=== PATIENT | female | born 1960 | race African-American/Black ===

== ENCOUNTER 2017-08-06 08:05 | Emergency (ER) | payer OTHER ==
[~2017-08-06] VITALS: Ht 172.7 cm; Wt 118.0 kg
[2017-08-06 08:12] VITALS: BP 163/80; PULSE 88; RESP 24; TEMP 99.3; O2SAT 94
[2017-08-06] MEDS ORDERED: METO25TA3 PO (08:19)
[2017-08-06] MEDS ORDERED: VALS1TAB70 PO ×2 (08:19→09:19)
[2017-08-06 08:23] VITALS: RESP 22; O2SAT 97
--- NOTE | 2017-08-06 08:24 | PD ---
HPI Chief Complaint: Respiratory Symptoms Time Seen by Provider: 08:16 Travel History International Travel<30 days: No Contact w/Intl Traveler<30days: No Traveled to known affect area: No History of Present Illness HPI This is a 57-year-old female who has a history of COPD who presents to the emergency department with increasing shortness of breath, constant, moderate severity over the past 2 days associated with a fever to 101 and a nonproductive cough. She says she was up all night using her nebulizer but she continues to feel short of breath this morning. She also says she has had itchy eyes. She has been taking certrizine but it is not helping. She has been staying with a friend and they have a dog and she thinks this is triggering her wheezing. [facility] Past Medical History Narrative Medical Hypertension COPD Diabetes Asthma: Yes Cardiovascular Problems: Yes (HBP) COPD: Yes Diabetes: Yes (TYPE 2 ) Patient Takes Glucophage: No Diminished Hearing: No Hypertension: Yes Medical other: Yes Respiratory: Yes (COPD) Tetanus Vaccination: > 5 Years Influenza Vaccination: Yes ?: Not : 7 Para: 7 Past Surgical History Gynecologic Surgery: Yes Hysterectomy: Yes Social History Alcohol Use: No Tobacco Use: Yes (1 PACK PER WEEK) Substance Use: No Allergies-Medications (Allergen,Severity, Reaction): Coded Allergies: codeine (Verified Allergy, Intermediate, HIVES, 08/06/17) tomato (Verified Allergy, Intermediate, HIVES, 08/06/17) Reported Meds & Prescriptions Reported Meds & Active Scripts Active Reported Metoprolol Tartrate 25 Mg Tab 25 Mg PO BID Valsartan 320 Mg Tab 320 Mg PO DAILY Review of Systems Except as stated in HPI: all other systems reviewed are Neg Physical Exam Narrative GENERAL:Well appearing, no acute distress SKIN: Focused skin assessment warm and dry. HEAD: Atraumatic. Normocephalic. EYES: Pupils equal and round. No injection or drainage. ENT: Moist mucous membranes NECK: Trachea midline. CARDIOVASCULAR: Regular rate and rhythm. No murmur appreciated. RESPIRATORY: Diffuse wheezing bilaterally with no increased work of breathing GASTROINTESTINAL: Abdomen soft, non-tender, nondistended. MUSCULOSKELETAL: No obvious deformities. NEUROLOGICAL: Awake and alert. No obvious cranial nerve deficits. Moving all extremities. PSYCHIATRIC: Appropriate mood and affect; insight and judgment normal. Data Data Last Documented VS Vital Signs Date Time Temp Pulse Resp B/P (MAP) Pulse Ox O2 Delivery O2 Flow Rate FiO2 08/06/17 08:23 97 Room Air 08/06/17 08:23 22 08/06/17 08:12 82 08/06/17 08:12 99.3 163/80 (107) Orders Orders Complete Blood Count With Diff (08/06/17 08:22) Comprehensive Metabolic Panel (08/06/17 08:22) Chest, Single Ap (08/06/17:22) Ecg Monitoring (08/06/17 08:22) Iv Access Insert/Monitor (08/06/17:) Oximetry (08/06/17:22) Oxygen Administration (08/06/17:22) Methylprednisolone So Succ Inj (Solumedr (08/06/17 08:30) Albuterol Neb (Albuterol Neb) (08/06/17 08:30) Sodium Chloride 0.9% Flush (Ns Flush) (08/06/17 08:30) Lactic Acid (08/06/17 08:22) Labs Laboratory Tests Test 08/06/17 08:10 White Blood Count 7.3 TH/MM3 Red Blood Count 4.62 MIL/MM3 Hemoglobin 14.3 GM/DL Hematocrit 42.1 % Mean Corpuscular Volume 91.2 FL Mean Corpuscular Hemoglobin 31.0 PG Mean Corpuscular Hemoglobin Concent 34.0 % Red Cell Distribution Width 14.0 % Platelet Count 242 TH/MM3 Mean Platelet Volume 9.1 FL Neutrophils (%) (Auto) 35.7 % Lymphocytes (%) (Auto) 51.5 % Monocytes (%) (Auto) 5.8 % Eosinophils (%) (Auto) 6.6 % Basophils (%) (Auto) 0.4 % Neutrophils # (Auto) 2.6 TH/MM3 Lymphocytes # (Auto) 3.8 TH/MM3 Monocytes # (Auto) 0.4 TH/MM3 Eosinophils # (Auto) 0.5 TH/MM3 Basophils # (Auto) 0.0 TH/MM3 CBC Comment DIFF FINAL Differential Comment Blood Urea Nitrogen 16 MG/DL Creatinine 1.04 MG/DL Random Glucose 101 MG/DL Total Protein 7.5 GM/DL Albumin 3.6 GM/DL Calcium Level 8.5 MG/DL Alkaline Phosphatase 83 U/L Aspartate Amino Transf (AST/SGOT) 21 U/L Alanine Aminotransferase (ALT/SGPT) 28 U/L Total Bilirubin 0.3 MG/DL Sodium Level 144 MEQ/L Potassium Level 3.6 MEQ/L Chloride Level 109 MEQ/L Carbon Dioxide Level 26.7 MEQ/L Anion Gap 8 MEQ/L Estimat Glomerular Filtration Rate 67 ML/MIN Lactic Acid Level 1.3 mmol/L MDM Medical Decision Making Medical Screen Exam Complete: Yes Emergency Medical Condition: Yes Interpretation(s) No leukocytosis Electrolytes are reassuring Lactic acid is normal Chest x-ray: No acute process Differential Diagnosis COPD exacerbation, pneumonia, bronchitis, seasonal allergies Narrative Course This is a 57-year-old female who presents to the emergency department with shortness of breath. She has a history of COPD. She is diffusely wheezing on exam. She was placed on a monitor and an IV was established. She was given serial bronchodilator treatments and IV steroids. On reassessment she is significantly improved. Labs are unremarkable and chest x-ray is negative for pneumonia. I think she can be discharged on prednisone in the setting of a COPD exacerbation. Diagnosis Primary Impression: COPD exacerbation Patient Instructions: General Instructions Additional Instructions: If you develop severe shortness of breath, chest pain, or difficulty breathing return to the emergency department. Use albuterol every 4 hours for the next 2 days. Then use as needed for wheezing. Complete your course of steroids. Follow up with your primary care physician in 2-3 days if your symptoms have not improved. Med/Other Pt SpecificInfo: Prescription(s) given Scripts Naphazoline-Pheniramine Opth Drops (Visine-A Opth Drops) 0.025-0.3 % Soln 1 DROP EACH EYE QID for Decrease eye itching/redness, #1 BOTTLE 0 Refills Prov: Emely Schaffer MD 08/06/17 Valsartan (Valsartan) 320 Mg Tab 320 MG PO DAILY, #30 TAB 0 Refills Prov: Emely Schaffer MD 08/06/17 Prednisone (Prednisone) 20 Mg Tab 40 MG PO DAILY, #10 TAB 0 Refills Take 40 mg (2 tablets) daily for 5 days Prov: Emely Schaffer MD 08/06/17 Disposition: 01 DISCHARGE HOME Condition: Stable Emely Schaffer MD August 06, 2017 08:24
[2017-08-06] MEDS: RESP: ALBUTEROL 2.5 MG/3 ML NEB (SCH) INH ×2 (08:28→08:29)
[2017-08-06] MEDS ORDERED: methylPREDNISolone SOD SUCC 125 MG/2 ML VIAL IV PUSH ONE (08:30)
[2017-08-06] MEDS ORDERED: SODIUM CHLORIDE 0.9% FLUSH 10 ML FLUSH IVF PRN (08:30)
[2017-08-06 08:43] LABS: AUTOMATED NEUTROPHIL # 2.6 TH/MM3 (1.8-7.7); BASOPHIL % 0.4 % (0.0-2.0); EOSINOPHIL # 0.5 TH/MM3 (0-0.4); EOSINOPHIL % 6.6 % (0.0-4.0); HEMATOCRIT 42.1 % (35.0-46.0); HEMOGLOBIN 14.3 GM/DL (11.6-15.3); LYMPH % 51.5 % (9.0-44.0); LYMPHOCYTE # 3.8 TH/MM3 (1.0-4.8); MEAN CELL VOLUME 91.2 FL (80.0-100.0); MEAN PLATELET VOLUME 9.1 FL (7.0-11.0); MONO % 5.8 % (0.0-8.0); MONOCYTE # 0.4 TH/MM3 (0-0.9); NEUT % 35.7 % (16.0-70.0); PLATELET COUNT 242 TH/MM3 (150-450); RED BLOOD COUNT 4.62 MIL/MM3 (4.00-5.30); WHITE BLOOD COUNT 7.3 TH/MM3 (4.0-11.0)
[2017-08-06 09:04] LABS: ALBUMIN 3.6 GM/DL (3.4-5.0); AST (GOT) 21 U/L (15-37); BICARBONATE 26.7 MEQ/L (21.0-32.0); BLOOD UREA NITROGEN 16 MG/DL (7-18); CALCIUM 8.5 MG/DL (8.5-10.1); CHLORIDE 109 MEQ/L (98-107); CREATININE 1.04 MG/DL (0.50-1.00); GLOMERULAR FILTRATION RATE 67 ML/MIN (>89); GLUCOSE,RANDOM 101 MG/DL (74-106); SODIUM (NA) 144 MEQ/L (136-145)
[2017-08-06 09:07] LABS: ALKALINE PHOSPHATASE 83 U/L (45-117); ALT (GPT) 28 U/L (10-53); TOTAL BILIRUBIN ADULT 0.3 MG/DL (0.2-1.0); TOTAL PROTEIN 7.5 GM/DL (6.4-8.2)
--- NOTE | 2017-08-06 09:08 | RADRPT ---
EXAM DATE/TIME: 08/06/2017 08:44 [place] COMPARISON: No previous studies available for comparison. INDICATIONS : Short of breath, HX: asthma. MEDICAL HISTORY : Asthma SURGICAL HISTORY : None. ENCOUNTER: Initial ACUITY: 1 day PAIN SCORE: 0/10 LOCATION: Bilateral chest FINDINGS: The cardiomediastinal contours are within normal limits. The lungs are clear. The exam does demonstra te some mild hyperinflation. The visualized bony structures are intact. CONCLUSION: 1. No acute cardiopulmonary findings identified. Prabhjot Viveros MD on August 06, 2017 at 9:03 Board Certified Radiologist. This report was verified electronically.
[2017-08-06] MEDS ORDERED: VISISOL2 EACH EYE (09:19)
[2017-08-06] MEDS ORDERED: PRED20 PO (09:19)
[2017-08-06] MEDS ORDERED: AZIT250T3 PO (09:21)
[2017-08-06 09:22] VITALS: BP 145/81; TEMP 98
--- NOTE | 2017-08-06 22:14 | EKG ---
Date Performed: 08/06/2017 Time Performed: 08:14:52 PTAGE: 57 years EKG: Sinus rhythm NONSPECIFIC T-WAVE ABNORMALITY BORDERLINE ECG NO PREVIOUS TRACING DOCTOR: Paulie Phillips Interpretating Date/Time 08/06/2017 22:13:14
== END 2017-08-06 09:22 | disposition home or self-care (01) ==
LOC: NEPC 08:05
DX: J44.1 Chronic obstructive pulmonary disease with (acute) exacerbation (principal); R94.31 Abnormal electrocardiogram [ECG] [EKG]; I10 Essential (primary) hypertension; E11.9 Type 2 diabetes mellitus without complications; F17.210 Nicotine dependence, cigarettes, uncomplicated; Z88.5 Allergy status to narcotic agent
CPT/HCPCS: 71045; 80053; 83605; 85025; 93005; 94640; 94664; 96374; 99285; J2930; J7613